=== PATIENT | female | born 1980 | race Caucasian/White ===

== ENCOUNTER 2016-06-08 18:55 | Emergency (ER) | payer OTHER ==
[2016-06-08] MEDS ORDERED: HYDROcodone/Acetaminophen 10/325 mg Tablet ONE (19:15)
--- NOTE | 2016-06-08 19:44 | ERRECORD ---
[facility] EMERGENCY RECORD HPI TOOTHACHE (19:13 DHAM) CHIEF COMPLAINT: Patient presents for evaluation of toothache. HISTORIAN: History provided by patient. LOCATION: Symptoms are localized, most severe to posterior upper teeth. " I have three that are going to get pulled by oral surgeon in [place] on this coming Tuesday.". TEETH: upper left 1st molar (#14), upper left 2nd molar (#15), upper left 3rd molar (#16), lower left 3rd molar (#17), lower left 2nd molar (#18), lower left 1st molar (#19),. QUALITY: Pain is sharp in nature, described as stabbing. SEVERITY: Currently symptoms are severe. TIME COURSE: Gradual onset of symptoms, 4, weeks ago. ASSOCIATED WITH: No associated chills, Associated with facial pain, No associated fever. EXACERBATED BY: Patient's condition exacerbated by chewing, Patient's condition exacerbated by cold fluids, Patient's condition exacerbated by hot fluids. RELIEVED BY: Patient's condition relieved by nothing. ROS (19:13 DHA) CONSTITUTIONAL: Negative constitutional review of systems, Historian denies chills, denies fatigue, denies fever. EYES: Negative eye review of systems. ENT: Negative ears, nose, throat review of systems, toothache recurrent. CARDIOVASCULAR: Negative cardiovascular review of systems, Historian denies chest pain, denies diaphoresis, denies exercise intolerance, denies palpitations. RESPIRATORY: Negative respiratory review of systems, Historian denies cough, denies shortness of breath, denies sputum, denies wheezing. GI: Negative gastrointestinal review of systems, Historian denies abdominal pain, denies anorexia, denies appetite changes, denies nausea, denies vomiting. GENITOURINARY FEMALE: Historian denies dysuria, denies frequency, denies hesitancy, denies vaginal bleeding, denies vaginal discharge, denies vaginal itching. MUSCULOSKELETAL: Negative musculoskeletal review of systems, Historian denies arthralgias, denies injury, denies myalgias. SKIN: Negative skin review of systems, Historian denies rash, denies skin lesions. NEUROLOGIC: Negative neurologic review of systems, Historian denies confusion, denies headache. ENDOCRINE: Negative endocrine review of systems. HEMO/LYMPHATIC: Normal hematologic/lymphatic system review. ALLERGIC/IMMUNOLOGIC: Normal allergy/immunologic system review. PSYCHIATRIC: Negative psychiatric review of systems. PAST MEDICAL HISTORY (19:05 AADK) &a-1R&a+25V*p+0X*w8604T*c202B*c15G*c2P*p-0X&a-25V&a+1R Name: Kiana Ge : 1980 F35 MedRec: [id number] AcctNum: [id number] Prepared: TueJun 09, 2016 10:52 by Interface Page 1 of 3 pMD [facility] EMERGENCY RECORD MEDICAL HISTORY: Flu vaccine not up to date, Tetanus immunization up to date, Date of immunization: < 5 YEARS, Pneumococcal vaccine not up to date, No past medical history. REVEIWED 06/08/16. FEMALE SURGICAL HISTORY: Surgical history of section, Notes: x2. REVIEWED 06/08/16. PSYCHIATRIC HISTORY: No previous psychiatric history. REVIEWED 06/08/16. SOCIAL HISTORY: Patient denies alcohol use, Patient denies drug use, Patient has no smoking history. REVIEWED 06/08/16. FAMILY HISTORY: Family istory is not significant. 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 VITAL SIGNS VITAL SIGNS: BP: 153/101, Pulse: 105, Resp: 22 (Non-Labored), Temp: 98.2 (Oral), Pain: 10 (Constant), O2 sat: 98 on Room Air, Time: 06/08/2016 19:01. (19:01 AADK) BP: 129/79, Time: 06/08/2016 19:31. (19:31 KSPL) PHYSICAL EXAM (19:13 DHAM) CONSTITUTIONAL: Vital signs reviewed, Patient afebrile, Pulse, tachycardic, Blood pressure, hypertensive, Respiratory rate normal, Patient appears non toxic, Patient appears in pain, in moderate pain distress, Patient alert and oriented to person, place and time. HEAD: Head exam normal, Head exam included findings of head atraumatic, normocephalic. EYES: Eye exam normal, Eye exam included findings of eyelids normal to inspection, Pupils equally round and reactive to light, Extraocular muscles intact, Conjunctiva normal, Sclera normal, Fundoscopic exam normal. ENT: ENT exam normal, Ear exam normal, Nose exam normal, no nasal deformity, no bleeding from nares, no bleeding from hypopharynx, no foreign body visualized, no septal hematoma, no septal necrosis, No turbinate mucosa discharge, Pharynx exam normal, Uvula exam normal, Tonsil exam normal, Mouth exam normal, Teeth with, dental caries, fractures, gumline tender right upper but no swelling noted. NECK: Neck exam normal, Neck exam included findings of normal range of motion, Trachea midline, no meningeal signs. RESPIRATORY CHEST: Respiratory and chest exam normal, Respiratory exam included findings of no respiratory distress, Breath sounds clear. &a-1R&a+25V*p+0X*h8940L*c202B*c15G*c2P*p-0X&a-25V&a+1R Name: Kiana Ge : 1980 F35 MedRec: [id number] AcctNum: [id number] Prepared: TueJun 09, 2016 10:52 by Interface Page 2 of 3 pMD [facility] EMERGENCY RECORD CARDIOVASCULAR: Cardiovascular assessment normal, Cardiovascular exam included findings of heart rate regular rate and rhythm, Heart sounds normal. NEURO: Neuro exam normal, [place] coma scale 15, Neuro exam findings include patient oriented to person, place and time, Speech normal, Gait normal, Memory normal, Cranial nerves intact. SKIN: Skin exam normal, Skin exam included findings of skin warm, dry, and normal in color, no rash. LYMPHATIC: Lymphatic exam normal. MEDICATION ADMINISTRATION SUMMARY Drug Name: *[place], Dose Ordered: 1 tab(s), Route: Oral, Status: Given, Time: 19:17 06/08/2016, *Additional information available in notes, Detailed record available in Medication Service section. PROBLEM LIST No recorded problems DIAGNOSIS (19:19 DHAM) FINAL: PRIMARY: Dental caries. PRESCRIPTION clindamycin HCl: CAPSULE (HARD, SOFT, ETC.) : 150 mg : ORAL : Quantity: 2 Unit: cap(s) Route: ORAL Schedule: 4 times a day Dispense: 80 Unit: cap(s) May substitute. Refills: No Refills . (19:16 DHAM) NOTES: No refills. (19:16 DHAM) acetaminophen-codeine: TABLET : 325 mg-30 mg : ORAL : Quantity: 1-2 Unit: tab(s) Route: ORAL Schedule: every 6 hours PRN Dispense: 10 Unit: tab(s) May substitute. Refills: No Refills . (19:17 DHAM) NOTES: No refills. (19:17 DHAM) DISPOSITION PATIENT: Disposition Type: Discharge, Disposition: *Discharge Home. (19:19 DHAM) Patient left the department. (19:34 KSPL) Cope: AADK=ROBIN Velazquez, Emmanuelle STINSON=MD Sukumar, Atul KSPL=ROBIN Ruvalcaba, Rosario &a-1R&a+25V*p+0X*s6732C*c202B*c15G*c2P*p-0X&a-25V&a+1R Name: Kiana Ge : 1980 F35 MedRec: [id number] AcctNum: [id number] Prepared: TueJun 09, 2016 10:52 by Interface Page 3 of 3 pMD MTDD
--- NOTE | 2016-06-08 19:51 | PICIS ---
[facility] EMERGENCY RECORD TRIAGE (19:00 AADK) PATIENT: NAME: Kiana Ge, AGE: 35, GENDER: female, : Tue1980, TIME OF GREET: TueJun 08, 2016 18:56, PREFERRED LANGUAGE: [place]alander, ETHNICITY: Not or , ECODE BILLING MAP: [facility], SSN: [id number], Zip Code: [address], KG WEIGHT: 81.65 (est.), PHONE: , , , PERSON ID: [id number], PAY[place]: [place], PCP: NONE. (19:00 AADK) COMPLAINT: DENTAL PAIN. (19:00 AADK) ADMISSION: URGENCY: 4 Non Urgent, ADMISSION SOURCE: Home, TRANSPORT: CAR, BED: ER -03. (19:00 AADK) ASSESSMENT: Symptoms began 12 hours ago. (19:05 AADK) PAIN: Patient complains of pain described as, sharp, on a scale 0-10 patient rates pain as 10, Location RIGHT UPPER JAW, RADIATES TO RIGHT CONFUCIANIST AND BACK OF HEAD, Pain is constant, Aggravating factors:, Aggravating factors include "ANY FOOD IN MY MOUTH AGGRAVATES IT". (19:05 AADK) SIRS SCORING: Heart Rate 55-109 (0), Temp range 96.8-101.1 (0), respiratory rate 12-24 (0), Mental Status altered: no (0), Total SIRS Score 0. (19:05 AADK) TRIAGE SCREENING: Patient denies suicidal ideation, Patient denies presence of domestic violence. (19:05 AADK) LMP: Last menstrual period: 06/01/2016. (19:05 AADK) PROVIDERS: TRIAGE NURSE: Emmanuelle Velazquez RN. (19:00 AADK) VITAL SIGNS: BP 153/101, Pulse 105, Resp 22, (Non-Labored), Temp 98.2, (Oral), Pain 10, (Constant), O2 Sat 98, on Room Air, Time 06/08/2016 19:01. (19:01 AADK) PREVIOUS VISIT ALLERGIES: Penicillins. (19:00 AADK) Penicillins. 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 VITAL SIGNS VITAL SIGNS: BP: 153/101, Pulse: 105, Resp: 22 (Non-Labored), Temp: 98.2 (Oral), Pain: 10 (Constant), O2 sat: 98 on Room Air, Time: 06/08/2016 19:01. (19:01 AADK) BP: 129/79, Time: 06/08/2016 19:31. (19:31 KSPL) NURSING ASSESSMENT: DENTAL (19:00 AADK) CONSTITUTIONAL: Patient arrives ambulatory, Gait steady, History obtained from patient, Patient appears, in distress due to pain, Patient cooperative, Patient alert, Oriented to person, place and time, Skin warm, Skin dry, Skin normal in color, Mucous &a-1R&a+25V*p+0X*q5627A*c202B*c15G*c2P*p-0X&a-25V&a+1R Name: Kiana Ge : 1980 F35 MedRec: [id number] AcctNum: [id number] Prepared: TueJun 09, 2016 10:57 by Interface Page 1 of 5 pMD [facility] EMERGENCY RECORD membranes pink, Mucous membranes moist, Patient is well-groomed, Patient complains of DENTAL PAIN, PT PRESENTS TO ER WITH C/O DENTAL PAIN, RIGHT UPPER MOUTH. PT STATES SHE IS SUPPOSED TO HAVE 3 TEETH PULLED BY AN ORAL SURGEON ON TUESDAY; SHE SAW HER DENTIST ALMOST 2 WEEKS AGO AND WAS GIVEN TYLENOL #3 AND CLINDAMYCIN. SHE COMPLETED THE CLINDAMYCIN AND RAN OUT OF THE TYLENOL #3. SHE CALLED HER DENTIST TODAY FOR MORE PAIN MEDICATION, BUT THE DENTIST WAS NOT IN TODAY. PT STATES PAIN 10/10, SHARP AND CONSTANT. PAIN: sharp pain, to right upper back tooth (teeth), constant, on a scale 0-10 patient rates pain as 10, Pain exacerbated by, EATING. DENTAL: Dental assessment findings include mouth normal, Teeth abnormal:, avulsed secondary tooth (teeth). SAFETY: Side rails up, Cart/Stretcher in lowest position, Call light within reach, Hospital ID band on, Patient in view of the nursing station, Notes: GAVE PT ICE PACK TO APPLY TO RIGHT UPPER JAW AREA. NURSING PROCEDURE: DISCHARGE NOTE (19:31 KSPL) DISCHARGE: Patient discharged to home, ambulating without assistance, family driving, accompanied by //partner, Summary of Care printed/ provided, Patient requested and was provided an electronic copy of Discharge Instructions, Transition record given to patient, Discharge instructions given to patient, Simple or moderate discharge teaching performed, Prescriptions given and instructions on side effects given, Name of prescription(s) given: TYLENOL 3, CLINDAMYCIN, Medication reconciliation form given, Above person(s) verbalized understanding of discharge instructions and follow-up care, Patient treated and evaluated by physician. BELONGINGS: Belongings and valuables with patient at time of discharge include:, Belongings remain with patient, Valuables remain with patient. SAFETY: Side rails up, Cart/Stretcher in lowest position, Family at bedside, Call light within reach, Hospital ID band on. VITAL SIGNS: BP: 129, / 79. MEDICATION ADMINISTRATION SUMMARY Drug Name: *[place], Dose Ordered: 1 tab(s), Route: Oral, Status: Given, Time: 19:17 06/08/2016, *Additional information available in notes, Detailed record available in Medication Service section. MEDICATION SERVICE (19:17 [facility]) [place]: Order: [place] (hydrocodone bitartrate/acetaminophen) - Dose: 1 tab(s) : Oral Schedule: Now Notes: 10mg hydrocodone now Ordered by: Atul Patino MD Entered by: Atul Patino MD [facility] Jun 08, 2016 19:15 Documented as given by: Emmanuelle Velazquez RN [facility] Jun 08, 2016 19:17 &a-1R&a+25V*p+0X*c7319M*c202B*c15G*c2P*p-0X&a-25V&a+1R Name: Kiana Ge : 1980 F35 MedRec: [id number] AcctNum: [id number] Prepared: TueJun 09, 2016 10:57 by Interface Page 2 of 5 pMD [facility] EMERGENCY RECORD Patient, Medication, Dose, Route and Time verified prior to administration. Amount given: 1 TAB, Site: Medication administered P.O., Patient appears Awake and alert- acceptable, Correct patient, time, route, dose and medication confirmed prior to administration, Patient advised of actions and side-effects prior to administration, Allergies confirmed and medications reviewed prior to administration, Patient in position of comfort, Side rails up, Cart in lowest position, Family at bedside, Call light in reach. HPI TOOTHACHE (19:13 DHA) CHIEF COMPLAINT: Patient presents for evaluation of toothache. HISTORIAN: History provided by patient. LOCATION: Symptoms are localized, most severe to posterior upper teeth. " I have three that are going to get pulled by oral surgeon in [place] on this coming Tuesday.". TEETH: upper left 1st molar (#14), upper left 2nd molar (#15), upper left 3rd molar (#16), lower left 3rd molar (#17), lower left 2nd molar (#18), lower left 1st molar (#19),. QUALITY: Pain is sharp in nature, described as stabbing. SEVERITY: Currently symptoms are severe. TIME COURSE: Gradual onset of symptoms, 4, weeks ago. ASSOCIATED WITH: No associated chills, Associated with facial pain, No associated fever. EXACERBATED BY: Patient's condition exacerbated by chewing, Patient's condition exacerbated by cold fluids, Patient's condition exacerbated by hot fluids. RELIEVED BY: Patient's condition relieved by nothing. ROS (19:13 DHAM) CONSTITUTIONAL: Negative constitutional review of systems, Historian denies chills, denies fatigue, denies fever. EYES: Negative eye review of systems. ENT: Negative ears, nose, throat review of systems, toothache recurrent. CARDIOVASCULAR: Negative cardiovascular review of systems, Historian denies chest pain, denies diaphoresis, denies exercise intolerance, denies palpitations. RESPIRATORY: Negative respiratory review of systems, Historian denies cough, denies shortness of breath, denies sputum, denies wheezing. GI: Negative gastrointestinal review of systems, Historian denies abdominal pain, denies anorexia, denies appetite changes, denies nausea, denies vomiting. GENITOURINARY FEMALE: Historian denies dysuria, denies frequency, denies hesitancy, denies vaginal bleeding, denies vaginal discharge, denies vaginal itching. MUSCULOSKELETAL: Negative musculoskeletal review of systems, Historian denies arthralgias, denies injury, denies myalgias. &a-1R&a+25V*p+0X*t8339X*c202B*c15G*c2P*p-0X&a-25V&a+1R Name: Kiana Ge : 1980 F35 MedRec: [id number] AcctNum: [id number] Prepared: TueJun 09, 2016 10:57 by Interface Page 3 of 5 pMD [facility] EMERGENCY RECORD SKIN: Negative skin review of systems, Historian denies rash, denies skin lesions. NEUROLOGIC: Negative neurologic review of systems, Historian denies confusion, denies headache. ENDOCRINE: Negative endocrine review of systems. HEMO/LYMPHATIC: Normal hematologic/lymphatic system review. ALLERGIC/IMMUNOLOGIC: Normal allergy/immunologic system review. PSYCHIATRIC: Negative psychiatric review of systems. PAST MEDICAL HISTORY (19:05 AADK) MEDICAL HISTORY: Flu vaccine not up to date, Tetanus immunization up to date, Date of immunization: < 5 YEARS, Pneumococcal vaccine not up to date, No past medical history. REVEIWED 06/08/16. FEMALE SURGICAL HISTORY: Surgical history of section, Notes: x2. REVIEWED 06/08/16. PSYCHIATRIC HISTORY: No previous psychiatric history. REVIEWED 06/08/16. SOCIAL HISTORY: Patient denies alcohol use, Patient denies drug use, Patient has no smoking history. REVIEWED 06/08/16. FAMILY HISTORY: Family istory is not significant. PHYSICAL EXAM (19:13 DHAM) CONSTITUTIONAL: Vital signs reviewed, Patient afebrile, Pulse, tachycardic, Blood pressure, hypertensive, Respiratory rate normal, Patient appears non toxic, Patient appears in pain, in moderate pain distress, Patient alert and oriented to person, place and time. HEAD: Head exam normal, Head exam included findings of head atraumatic, normocephalic. EYES: Eye exam normal, Eye exam included findings of eyelids normal to inspection, Pupils equally round and reactive to light, Extraocular muscles intact, Conjunctiva normal, Sclera normal, Fundoscopic exam normal. ENT: ENT exam normal, Ear exam normal, Nose exam normal, no nasal deformity, no bleeding from nares, no bleeding from hypopharynx, no foreign body visualized, no septal hematoma, no septal necrosis, No turbinate mucosa discharge, Pharynx exam normal, Uvula exam normal, Tonsil exam normal, Mouth exam normal, Teeth with, dental caries, fractures, gumline tender right upper but no swelling noted. NECK: Neck exam normal, Neck exam included findings of normal range of motion, Trachea midline, no meningeal signs. RESPIRATORY CHEST: Respiratory and chest exam normal, Respiratory exam included findings of no respiratory distress, Breath sounds clear. CARDIOVASCULAR: Cardiovascular assessment normal, Cardiovascular exam included findings of heart rate regular rate and rhythm, Heart sounds normal. NEURO: Neuro exam normal, [place] coma scale 15, Neuro exam &a-1R&a+25V*p+0X*s7870Z*c202B*c15G*c2P*p-0X&a-25V&a+1R Name: Kiana Ge : 1980 F35 MedRec: [id number] AcctNum: [id number] Prepared: TueJun 09, 2016 10:57 by Interface Page 4 of 5 pMD [facility] EMERGENCY RECORD findings include patient oriented to person, place and time, Speech normal, Gait normal, Memory normal, Cranial nerves intact. SKIN: Skin exam normal, Skin exam included findings of skin warm, dry, and normal in color, no rash. LYMPHATIC: Lymphatic exam normal. EVENTS TRANSFER: Triage to Emergency Emergency Room -03. (TueJun 08, 2016 19:00 AADK) Removed from Emergency Emergency Room -03. (19:34 KSPL) PROBLEM LIST No recorded problems DIAGNOSIS (19:19 DHAM) FINAL: PRIMARY: Dental caries. DISPOSITION PATIENT: Disposition Type: Discharge, Disposition: *Discharge Home. (19:19 DHAM) Patient left the department. (19:34 KSPL) INSTRUCTION (19:21 DHAM) DISCHARGE: DENTAL ABSCESS. SPECIAL: Clindamycin 150mg 2 cap four times a day Tylenol #3 1-2 every six hours as needed for pain (10) Please call your dentist/oral surgeon for pain med refill in the morning. Return for facial swelling or fever or any other concerns. PRESCRIPTION clindamycin HCl: CAPSULE (HARD, SOFT, ETC.) : 150 mg : ORAL : Quantity: 2 Unit: cap(s) Route: ORAL Schedule: 4 times a day Dispense: 80 Unit: cap(s) May substitute. Refills: No Refills . (19:16 DHAM) NOTES: No refills. (19:16 DHAM) acetaminophen-codeine: TABLET : 325 mg-30 mg : ORAL : Quantity: 1-2 Unit: tab(s) Route: ORAL Schedule: every 6 hours PRN Dispense: 10 Unit: tab(s) May substitute. Refills: No Refills . (19:17 DHAM) NOTES: No refills. (19:17 DHAM) IMAGING (19:33 KSPL) *SUPPLY CHARGE SHEET: Image captured from scanner. *DISCHARGE INSTRUCTIONS RECEIPT: Image captured from scanner. ADMIN (TueJun 09, 2016 10:47 DHAM) DIGITAL SIGNATURE: MD Patino Darren. Cope: AADK=ROBIN Velazquez, Emmanuelle NORMANM=MD Patino Darren KSPL=ROBIN Ruvalcaba, Rosario &a-1R&a+25V*p+0X*b1215P*c202B*c15G*c2P*p-0X&a-25V&a+1R Name: Kiana Ge : 1980 F35 MedRec: [id number] AcctNum: [id number] Prepared: TueJun 09, 2016 10:57 by Interface Page 5 of 5 pMD MTDD
== END 2016-06-08 19:30 | disposition home or self-care (01) ==
LOC: BURERS 18:55
DX: K02.9 Dental caries, unspecified (principal)
CPT/HCPCS: 99282

== ENCOUNTER 2017-07-20 08:13 | Outpatient (CLI) | payer OTHER ==
--- NOTE | 2017-07-21 08:42 | ULT ---
GALLBLADDER ULTRASOUND 07/20/17 Ultrasonography of the right upper quadrant was performed for evaluation of right upper quadrant pain . The liver is slightly generous in size at 16.4 cm in oblique sagittal length. Internally, no masses o r dilated ducts were seen. The visible portions of the pancreas were unremarkable, though not all sec tions were seen well due to bowel gas. No stones were seen in the gallbladder, nor was there wall thi ckening. The wall was about 2 mm thick. The common bile duct is a normal 4 mm in caliber. The right k idney appears normal and is 10.5 cm in length. IMPRESSION: No acute right upper quadrant findings. Borderline hepatic size. POS: HOME
== END 2017-07-20 08:14 | disposition home or self-care (01) ==
LOC: BURULT 08:13
PROVIDERS: ATTEND Family Medicine
DX: R10.11 Right upper quadrant pain (principal)
CPT/HCPCS: 76705

== ENCOUNTER 2017-12-16 15:09 | Emergency (ER) | payer OTHER ==
--- NOTE | 2017-12-16 19:46 | RAD ---
RIGHT SHOULDER THREE VIEWS 12/16/17 No fracture, dislocation, or acute bony change was seen. The AC joint is normal in width and the visi ble adjacent ribs seems normal. IMPRESSION: No acute findings. POS: HOME
== END 2017-12-16 15:49 | disposition home or self-care (01) ==
LOC: BURERS 15:09
DX: S43.401A Unspecified sprain of right shoulder joint, initial encounter (principal); F90.9 Attention-deficit hyperactivity disorder, unspecified type; Z79.899 Other long term (current) drug therapy; W19.XXXA Unspecified fall, initial encounter; Y92.009 Unspecified place in unspecified non-institutional (private) residence as the place of occurrence of the external cause